=== PATIENT | female | born 1935 | race Caucasian/White ===

== ENCOUNTER 2021-11-01 21:36 | Emergency (ER) | payer MEDICARE, BC ==
[2021-11-01] MEDS ORDERED: Ondansetron 4 MG/2 ML SDV IVPUSH ONE (22:30)
[2021-11-01] MEDS ORDERED: Sodium Chloride 0.9% 1,000 ML IV SCH (22:30)
[2021-11-01] MEDS ORDERED: Pantoprazole 40 MG Vial IVPUSH ONE (22:31)
[2021-11-01] MEDS ORDERED: Famotidine 20 MG/2 ML SDV IVPUSH ONE (22:31)
[2021-11-01] MEDS: Sodium Chloride 0.9% 10 ML Syringe FLUSH PRN (23:25)
[2021-11-02] MEDS ORDERED: Iopamidol 612 MG/ML 100 ML Bottle IVPUSH ONE (00:58)
[2021-11-02] MEDS ORDERED: Sodium Chloride 0.9% 10 ML SDV FLUSH ONE (00:58)
[2021-11-02] MEDS: Sodium Chloride 0.9% 10 ML Syringe FLUSH PRN (01:16)
[2021-11-02] MEDS ORDERED: Alum Hydrox/Mag Hydrox/Simeth 30 ML, Lidocaine 2% 15 ML PO ONE ×2 (03:54)
== END 2021-11-02 04:25 | disposition home or self-care (01) ==
LOC: JD.ED 21:36
DX: K29.01 Acute gastritis with bleeding (principal); Z88.1 Allergy status to other antibiotic agents; Z88.5 Allergy status to narcotic agent; Z79.899 Other long term (current) drug therapy
CPT/HCPCS: 36415; 74018; 74177; 80053; 83690; 85025; 85610; 85730; 96374; 96375; 99284; A9270; C9113; J2405; J3490; J7030; Q9967; 99285

== ENCOUNTER 2022-11-02 05:19 | Emergency (ER) | payer MEDICARE, BC ==
[2022-11-02] MEDS ORDERED: Sodium Chloride 0.9% 10 ML Syringe FLUSH PRN (05:53)
[2022-11-02] MEDS ORDERED: Ondansetron 4 MG/2 ML SDV IVPUSH ONE (05:53)
[2022-11-02] MEDS ORDERED: HYDROmorphone 0.5 MG/0.5 ML Syringe IVPUSH ONE (05:54)
[2022-11-02] MEDS ORDERED: Sodium Chloride 0.9% 1,000 ML IV SCH (06:00)
[2022-11-02] MEDS ORDERED: Iopamidol 612 MG/ML 100 ML Bottle IVPUSH ONE (07:27)
== END 2022-11-02 08:10 | disposition home or self-care (01) ==
LOC: JD.ED 05:19
DX: R10.12 Left upper quadrant pain (principal); M54.50 Low back pain, unspecified
CPT/HCPCS: 36415; 74177; 80053; 81001; 83690; 85025; 96361; 96374; 99284; J2405; J3490; J7030

== ENCOUNTER 2023-04-09 19:08 | Emergency (ER) | payer MEDICARE, BC | END 2023-04-10 02:00 | LOC: JD.ED 19:08 | DX: S72.142A Displaced intertrochanteric fracture of left femur, initial encounter for closed fracture (principal); S72.115A Nondisplaced fracture of greater trochanter of left femur, initial encounter for closed fracture; S50.02XA Contusion of left elbow, initial encounter; Z79.899 Other long term (current) drug therapy; Z88.1 Allergy status to other antibiotic agents; Z88.5 Allergy status to narcotic agent; W01.0XXA Fall on same level from slipping, tripping and stumbling without subsequent striking against object, initial encounter; Y93.01 Activity, walking, marching and hiking; Y92.480 Sidewalk as the place of occurrence of the external cause | CPT/HCPCS: 73502-26-LT; 73502-LT; 99284; 99285 ==